=== PATIENT | male | born 1960 | race Caucasian/White ===

== ENCOUNTER 2017-01-17 13:02 | Day surgery (SDC) | payer SELFPAY ==
[~2017-01-17] VITALS: Ht 177.8 cm; Wt 78.9 kg
[~2017-01-17 13:02] MED LIST: CLONAZEPAM1 M1 PO; HYDROCODONE/ACE1 TAB PO
[2017-01-17] MEDS ORDERED: PERCOCET 10/31 COMBO PO (18:03)
[2017-01-17 18:27] VITALS: BP 155/84
== END 2017-01-17 18:40 | disposition home or self-care (01) | DRG 489 ==
LOC: ORM 13:02
PROVIDERS: ATTEND Orthopaedic Surgery
PROC: 0SBD4ZZ Excision of Left Knee Joint, Percutaneous Endoscopic Approach (ICD-10-PCS; principal; 2017-01-17)
DX: S83.232A Complex tear of medial meniscus, current injury, left knee, initial encounter (principal); M65.862 Other synovitis and tenosynovitis, left lower leg; S83.282A Other tear of lateral meniscus, current injury, left knee, initial encounter; M67.52 Plica syndrome, left knee; M94.262 Chondromalacia, left knee; X50.1XXA Overexertion from prolonged static or awkward postures, initial encounter